=== PATIENT | male | born 1960 | race Caucasian/White ===

== ENCOUNTER 2024-12-12 12:46 | Emergency (ER) | payer OTHER, BC ==
[2024-12-12 14:48] LABS: BASOPHILS ABSOLUTE AUTO 0.06 K/uL (0.00-0.10); BASOPHILS PERCENT AUTO 0.5 % (0.1-1.3); EOSINOPHILS ABSOLUTE AUTO 0.26 K/uL (0.00-0.40); EOSINOPHILS PERCENT AUTO 2.3 % (0.0-5.4); IMMATURE GRAN ABSOLUTE AUTO 0.04 K/uL (0.00-0.23); IMMATURE GRAN PERCENT AUTO 0.4 % (0.0-0.7); LYMPHOCYTES ABSOLUTE AUTO 1.73 K/uL (0.8-3.3); LYMPHOCYTES PERCENT AUTO 15.1 % (11.4-47.7); MONOCYTES ABSOLUTE AUTO 0.89 K/uL (0.20-0.90); MONOCYTES PERCENT AUTO 7.8 % (3.3-12.6); NEUTROPHILS ABSOLUTE AUTO 8.44 K/uL (1.0-7.6); NEUTROPHILS PERCENT AUTO 73.9 % (40.0-78.1); PLATELET COUNT,PLT 211 K/uL (130-375); RED BLOOD CELL COUNT 4.76 M/uL (4.14-5.76); WHITE BLOOD CELL COUNT,WBC 11.4 K/uL (3.2-11.0)
[2024-12-12 15:09] LABS: A/G RATIO 0.9 (1.2-2.2); ALANINE AMINOTRANSFERASE,ALT 40 U/L (12-78); ASPARTATE AMNIOTRANSFERASE,AST 32 U/L (15-37); BILIRUBIN TOTAL 0.6 mg/dL (0.2-1.0); BLOOD UREA NITROGEN,BUN 25 mg/dL (7-18); CARBON DIOXIDE,CO2 25 mmol/L (21-32); CHLORIDE,CL 102 mmol/L (100-108); CREATININE 0.7 mg/dL (0.8-1.3); EST CRCL DRUG DOSING (CG) 100.99 mL/min; ESTIMATED GFR 104 mL/min (>60); GLUCOSE RANDOM 114 mg/dL (74-106); POTASSIUM,K 4.3 mmol/L (3.6-5.2); PROTEIN TOTAL,TP 7.6 g/dL (6.4-8.2); SODIUM,NA 140 mmol/L (140-148)
[2024-12-12 15:12] LABS: SEDIMENTATION RATE MANUAL 16 mm/hr (0-20)
[2024-12-12] MEDS: Sodium Chloride 0.9% 10 ML Syringe FLUSH ONE (16:34)
[2024-12-12] MEDS: Iopamidol 612 MG/ML 100 ML Bottle IV PRN (16:34)
== END 2024-12-12 17:53 | disposition home or self-care (01) ==
LOC: JP.ED 12:46
DX: H10.9 Unspecified conjunctivitis (principal); I10 Essential (primary) hypertension; I25.2 Old myocardial infarction; Z79.899 Other long term (current) drug therapy
CPT/HCPCS: 36415; 70487; 80053; 84145; 85025; 85651; 86140; 99284; Q9967; 99283